=== PATIENT | male | born 1995 | race Caucasian/White ===

== ENCOUNTER → 2022-05-30 | Outpatient (CLI) | payer BC | LOC: US 13:29 | DX: R79.89 Other specified abnormal findings of blood chemistry (principal) ==

== ENCOUNTER → 2022-06-09 | Outpatient (CLI) | payer BC | LOC: MRI 06-08 11:00 | DX: N28.89 Other specified disorders of kidney and ureter (principal) | CPT/HCPCS: 74183; A9577 ==